=== PATIENT | female | born 1970 | race Asian ===

== ENCOUNTER 2018-05-28 15:06 | Day surgery (SDC) | payer OTHER ==
[2018-05-28] MEDS ORDERED: NALOXONE HCL 0.4 MG/ML INJ IVP PRN (16:17)
[2018-05-28] MEDS ORDERED: fentaNYL 100 MCG/2 ML INJ IVP PRN (16:17)
[2018-05-28] MEDS ORDERED: FLUMAZENIL 0.5 MG/5 ML MDV IVP PRN (16:17)
[2018-05-28] MEDS ORDERED: MIDAZOLAM 2 MG/2 ML VIAL IVP PRN (16:17)
--- NOTE | 2018-05-28 16:25 | PDPROPOC ---
Sedation Plan of Care Sedation Plan of Care: vital signs stable, mental status noted, patient educated of risks, benefits, alternatives, patient can tolerate sedation ASA Classification: ASA 2 Planned drugs: fentanyl, midazolam Mallampati Score: Class 1 Mallampati Reference Image: Patient passed 3-3-2 rule?: Yes
--- NOTE | 2018-05-28 16:25 | PDHPUP ---
History & Physical Update H&P update statement: This history and physical update is based on an assessment of the patient which was completed after admission or registration (within 24 hours), but prior to the surgery/procedure. The Full H&P has been dictated into the system H&P update: H&P reviewed & patient examined, no change in patient's condition since H&P completed
[2018-05-28] MEDS ORDERED: NS 1,000 ML IV SCH (16:30)
[2018-05-28] MEDS ORDERED: IOPAMIDOL (ISOVUE-370) 150 ML BTL IV ONE ×2 (16:58→17:59)
--- NOTE | 2018-05-28 17:20 | GHP ---
DATE OF ADMISSION: 05/28/2018 DATE OF PROCEDURE: 05/28/2018 The patient was seen and evaluated at approximately 4 p.m. in the preoperative area at [facility]. HPI: The patient is a 48-year-old woman who does not really have any other significant past medical history. She has apparently had a few intermittent nosebleeds over the weekend, which she says edwin johnston was bleeding from both naris and the mouth. Each time these might last about an hour and stopped with pinching the nose. Most recently, she had a bleed from about 1 a.m. till 3 a.m. this morning. She was seen in the ENT office today and was sent over to [facility] for embolizatio n of the left . It was not clear that anything was seen in the nose, but ENT felt that emb olization would be indicated. The patient denies any current pain or other symptoms. REVIEW OF SYSTEMS: A 10-point review of systems is negative other than described above in the HPI. PAST MEDICAL HISTORY: 1. Seasonal allergies. 2. Previous nasal surgery with Dr. Raines several years ago on the left side. 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 She is a nonsmoker and drinks no alcohol. She is [facility]. FAMILY HISTORY: Positive for stroke in her father, but was fully reviewed and is otherwise negative. ALLERGIES: Seasonal. MEDICATIONS: Zyrtec. PHYSICAL EXAMINATION: VITAL SIGNS: Currently, she is afebrile with normal stable vital signs. GENE RAL: She is awake, alert, and oriented x3. HEENT: Pupils are equal, round, and reactive to light. Extraocular movements are intact. Face is symmetric. Tongue is midline. NEUROLOGICAL: She has fu ll 5/5 strength at the deltoid, biceps, triceps, wrist flexion, extension, and communications technologist bilaterally. In the lower extremities, she has 5/5 strength in hip flexors, extensors, knee flexors and extensors, an d plantar and dorsiflexion. Sensation is normal. Deep tendon reflexes are normal. There is current ly no bleeding from the nose. IMAGING REVIEW: None. LABORATORY REVIEW: There are no current lab results for review at this time, and these are pending. ASSESSMENT AND PLAN: The patient is a 48-year-old woman who has apparently had intermittent nose ble eds. She was seen by ENT, who felt that embolization would be indicated for preventing any further b leeding. I talked to her about this, and based on the fact that I do not do surgery externally on , I would defer to ENT in terms of whether there may or may not be other procedures that were a vailable, but certainly we could embolize the unilateral left internal maxillary artery. We discusse d all the risks and benefits of this type of procedure including groin hematoma or damage to the femo ral artery, dissection of the carotid artery, or possible stroke, as well as inadvertent embolization of collateral branches to the ophthalmic artery, which could result in blindness. All these risks a re quite low, but nonetheless are not impossible. After the patient is done with her bedrest to allo w the groin site to heal, she could be discharged home and can follow up with ENT doctors as an outpa tient. I have answered all of her questions to the best of my ability and she would indeed like to p yane today. I do not see any contraindications to this. /[id number]/MODL
--- NOTE | 2018-05-28 18:20 | POSTOPPROG ---
Post Op Note Date of Operation: 05/28/18 Surgeon: Negro Rubalcava Outside Sales Representative Insurance: none Anesthesiologist: none Anesthesia: IV Sedation Pre-op Diagnosis: epistaxis Post-op Diagnosis: same Indication: epistaxis Procedure: angiogram, embolization of left IMAX Findings: successuful IMAX embo Inf/Abcess present in the surg proc area at time of surgery?: No EBL: Minimal Complications: none
[2018-05-28] MEDS ORDERED: OXYCODONE/APAP 5/325 TAB PO PRN (18:22)
[2018-05-28] MEDS ORDERED: ONDANSETRON 4 MG/2 ML VIAL IVP PRN (18:22)
--- NOTE | 2018-05-28 18:22 | PDCONSULT ---
[employer] Note: NEUROENDOVASCULAR no complaints AAOx3, vision normal, CNII-XII normal full strength/sensation, no drift groin site c/d/i s/p embolization of left IMAX for epistaxis - no sign of complication - flat for 3 hours, then can d/c home - f/u with ENT Gini
[2018-05-28 21:02] VITALS: BP 141/89
== END 2018-05-28 21:27 | disposition home or self-care (01) ==
LOC: FIMAGING 15:06
PROVIDERS: ATTEND Physician Assistant
PROC: 03L Upper Arteries, Occlusion (ICD-10-PCS; principal; 2018-05-28 18:31)
DX: R04.0 Epistaxis (principal)
CPT/HCPCS: 36223; 99152; 99153; C1769; C1887; C1894; J1644; J2250; J3010; Q9967